=== PATIENT | male | born 1935 | race Caucasian/White ===

== ENCOUNTER 2020-12-25 05:24 | Inpatient (IN) | payer MEDICARE, OTHER ==
[~2020-12-25] VITALS: Ht 185.4 cm; Wt 77.1 kg
[2020-12-25] MEDS ORDERED: AMOX TR-K CLV1 EAC4 PO (15:13)
[2020-12-25] MEDS ORDERED: MAPAP ARTHRITI650 MG PO (15:13)
[2020-12-25] MEDS ORDERED: FLONASE 0.05% N16 GM (15:14)
[2020-12-25] MEDS ORDERED: HYDROCODON-ACE1 EAC6 PO (15:14)
[2020-12-25] MEDS ORDERED: AMLODIPINE BESYL5 MG PO (15:15)
[2020-12-25] MEDS ORDERED: METOPROLOL SUCC25 MG PO (15:15)
[2020-12-25] MEDS ORDERED: PRAVASTATIN SOD10 MG PO (15:15)
[2020-12-25] MEDS ORDERED: NITROGLYCERIN0.4 MG SL (15:15)
[2020-12-25] MEDS ORDERED: CLOPIDOGREL75 MG PO (15:16)
[2020-12-25] MEDS ORDERED: LISINOPRIL10 MG PO (15:16)
[2020-12-25] MEDS ORDERED: IRON325 M1 PO (15:43)
[2020-12-25 16:27] LABS: BUN/CREATININE RATIO 16 (0-10)
[2020-12-26 03:28] LABS: HEMOGLOBIN 10.2 gm/dl (14.0-17.5); RED BLOOD COUNT 3.67 M/UL (4.20-5.50); WHITE BLOOD COUNT 2.8 K/UL (4.5-11.0)
[2020-12-26] MEDS ORDERED: HYDROCODON-ACE1 EAC4 PO (16:10)
[2020-12-26] MEDS ORDERED: LEVOFLOXACIN500 MG PO (16:10)
[2020-12-27 04:54] LABS: RED BLOOD COUNT 3.66 M/UL (4.20-5.50)
== END 2020-12-27 18:26 | disposition home health service (06) | DRG 243 ==
LOC: PROG CARE 05:24
PROVIDERS: Internal Medicine; Physician Assistant Medical; ADMIT Internal Medicine
PROC: 4A0274Z Measurement of Cardiac Electrical Activity, Via Natural or Artificial Opening (ICD-10-PCS; 2020-12-25)
PROC: 02HV33Z Insertion of Infusion Device into Superior Vena Cava, Percutaneous Approach (ICD-10-PCS; 2020-12-25)
PROC: B548ZZA Ultrasonography of Superior Vena Cava, Guidance (ICD-10-PCS; 2020-12-25)
PROC: 0JH606Z Insertion of Pacemaker, Dual Chamber into Chest Subcutaneous Tissue and Fascia, Open Approach (ICD-10-PCS; principal; 2020-12-26)
PROC: 02HK3JZ Insertion of Pacemaker Lead into Right Ventricle, Percutaneous Approach (ICD-10-PCS; 2020-12-26)
PROC: 02H63JZ Insertion of Pacemaker Lead into Right Atrium, Percutaneous Approach (ICD-10-PCS; 2020-12-26)
PROC: B24BZZ4 Ultrasonography of Heart with Aorta, Transesophageal (ICD-10-PCS; 2020-12-26)
PROC: 4A027FZ Measurement of Cardiac Rhythm, Via Natural or Artificial Opening (ICD-10-PCS; 2020-12-26)
DX: I44.1 Atrioventricular block, second degree (principal); N17.9 Acute kidney failure, unspecified; D61.818 Other pancytopenia; E87.1 Hypo-osmolality and hyponatremia; Z20.822 Contact with and (suspected) exposure to COVID-19; D64.9 Anemia, unspecified; E86.1 Hypovolemia; I35.0 Nonrheumatic aortic (valve) stenosis; I71.4 Abdominal aortic aneurysm, without rupture; J44.9 Chronic obstructive pulmonary disease, unspecified; I10 Essential (primary) hypertension; I44.39 Other atrioventricular block; F17.220 Nicotine dependence, chewing tobacco, uncomplicated; G89.29 Other chronic pain; E78.5 Hyperlipidemia, unspecified; Z87.11 Personal history of peptic ulcer disease; Z90.49 Acquired absence of other specified parts of digestive tract; Z88.1 Allergy status to other antibiotic agents; Z80.9 Family history of malignant neoplasm, unspecified
CPT/HCPCS: ECHO; 33208; 36415; 71045; 71275; 80048; 80053; 82550; 82553; 83735; 84439; 84443; 84484; 85027; 93005; 93306; 94640; 94664; 94760; 99152; 99153; C1751; C1898; C2621; J1644; J2250; J2270; J3010; J3370; J7040; J7050; J7070; Q9965; Q9967